=== PATIENT | female | born 1960 | race African-American/Black ===

== ENCOUNTER 2021-08-10 14:05 | Emergency (ER) | payer MEDICARE, MEDICAID, SELFPAY ==
[2021-08-10 14:07] VITALS: BP 133/80; PULSE 94; RESP 16; TEMP 36.3; O2SAT 99
--- NOTE | 2021-08-10 14:26 | PC.NURSE ---
pt states she was seen at [facility] this week. States they did an xray and diagnosed her with cellulitis. States she has been taking her clindamyicin with no change in s/s. Reports increased pain.
--- NOTE | 2021-08-10 14:46 | ED.GENADULT ---
HPI - General Adult General Chief complaint: Skin/Abscess/Foreign Body Stated complaint: swollen foot Time Seen by Provider: 08/10/21 14:38 Source: patient and RN notes reviewed Mode of arrival: ambulatory Limitations: no limitations History of Present Illness HPI narrative: Patient is 61 years old -Iranian female presents with pain and redness and swelling of the left big toe and the surrounding area started 1 week ago. Was seen at [facility] 5 days ago and started on clindamycin and tramadol without any improvement. Patient denies any trauma, fever, chills, nausea, vomiting. Patient had negative x-ray of the left foot at [facility] 5 days ago. No history of gout. Patient reports the pain is constant day and night, cannot tolerate anything on the foot even the bedsheet. Related Data Allergies Allergy/AdvReac Type Severity Reaction Status Date / Time Penicillins Allergy Hives Verified 08/10/21 14:17 aspirin AdvReac Nausea Verified 08/10/21 14:18 Review of Systems Review of Systems: CONSTITUTIONAL: Denies fever, chills, or sweats. EYES: Denies visual changes, redness, or discharge. ENT: Denies rhinorrhea, congestion, sore throat, or otalgia. CARDIOVASCULAR: Denies chest pain, palpitations, or edema. RESPIRATORY: Denies cough or dyspnea. GASTROINTESTINAL: Denies abdominal pain, nausea, vomiting, or diarrhea. GENITOURINARY: Denies dysuria or hematuria. SKIN: Denies rash or itching. MUSCULOSKELETAL: Denies back pain, joint pain, or myalgia. NEUROLOGIC: Denies headache, numbness, or weakness. PSYCHIATRIC: Denies anxiety or depression. Exam Narrative: General appearance: Well-developed, well-nourished Skin: Normal color Head: Normocephalic, nontraumatic Eyes: Clear conjunctiva ENT: Oropharynx normal, ears normal, nose normal Neck: Supple, nontender Chest and respiratory: Airway patent, no respiratory distress, no accessory muscle use Heart: Regular rate/rhythm Abdomen: Soft, nontender, no organomegaly, quiet bowel sounds Vascular: Normal peripheral pulses, normal capillary refill. Musculoskeletal: Left foot showed diffuse swelling, severe tenderness, redness and warmth feeling on the dorsal side and medial side of the toe Neurologic: Alert and oriented ?3, MAINTE[employer] TECH[employer]ICIAN is normal as tested, no gross motor deficit Course Course Emergency Course: Acute gouty arthritis is my concern. Clinical examination favors the gouty arthritis more than anything. There is no infection. Patient need to stop the antibiotic. Vital Signs Vital signs: Vital Signs Temperature 36.3 C L 08/10/21 14:07 Pulse Rate 94 08/10/21 14:07 Respiratory Rate 16 08/10/21 14:07 Blood Pressure 133/80 08/10/21 14:07 Pulse Oximetry 99 08/10/21 14:07 Temperature 36.3 C L 08/10/21 14:07 Pulse Rate 78 08/10/21 15:12 Respiratory Rate 18 08/10/21 15:12 Blood Pressure 133/80 08/10/21 14:07 Pulse Oximetry 98 08/10/21 15:12 Medical Decision Making Differential Diagnosis Differential Diagnosis: Gouty arthritis, tendinitis, tenosynovitis Vital Signs Vital Signs: Vital Signs Temperature 36.3 C L 08/10/21 14:07 Pulse Rate 94 08/10/21 14:07 Respiratory Rate 16 08/10/21 14:07 Blood Pressure 133/80 08/10/21 14:07 Pulse Oximetry 99 08/10/21 14:07 Temperature 36.3 C L 08/10/21 14:07 Pulse Rate 78 08/10/21 15:12 Respiratory Rate 18 08/10/21 15:12 Blood Pressure 133/80 08/10/21 14:07 Pulse Oximetry 98 08/10/21 15:12 Critical Care Time Critical Care Time Critical Care Time: No Discharge Plan Discharge Clinical Impression: Acute gout Patient Disposition: Home, Self-Care Condition: Stable Inst
[2021-08-10] MEDS: INDOMETHACIN 25 MG CAPSULE 50 MG PO (15:06)
[2021-08-10] MEDS: COLCHICINE 0.6 MG TABLET 1.2 MG PO (15:06)
[2021-08-10 15:12] VITALS: PULSE 78; RESP 18; O2SAT 98
== END 2021-08-10 15:13 | disposition home or self-care (01) ==
PROVIDERS: Emergency Provider Emergency Medicine; PCP Internal Medicine Infectious Disease
DX: M10.9 Gout, unspecified (principal)
CPT/HCPCS: 99283; A9270

== ENCOUNTER 2021-09-13 16:34 | Emergency (ER) | payer MEDICARE, OTHER, MEDICAID, SELFPAY ==
--- NOTE | ~2021-09-13 | CT_ITS ---
EXAMINATION: CT abdomen pelvis w con DATE: 09/13/2021 18:15 INDICATION: Upper abdominal pain radiating to the back. Nausea and vomiting. TECHNIQUE: Computed tomography (CT) of the abdomen and pelvis was performed with 75 mL Omnipaque 300 intravenous contrast. Automated exposure control and iterative reconstruction technique were employed . The dose-length product was 846.75 mGy-cm. COMPARISON: None. FINDINGS: The visualized portions of the lung bases demonstrate mild atelectasis. No pleural effusion . The heart size is normal. No pericardial effusion. There is a 10 mm cyst in the liver. There is a g allstone in the gallbladder, which is normal in size. The spleen, pancreas, and adrenal glands are no rmal. There are cysts in the kidneys measuring up to 2.0 cm on the left. There is diverticulosis of t he colon without evidence of diverticulitis. The appendix is normal. There is a small sliding hiatal hernia. There are no pathologically enlarged lymph nodes. There is no free intraperitoneal fluid. An intrathecal catheter is noted. There are bilateral total hip arthroplasties. There are changes of ant erior and posterior fusion procedures at L4-L5. IMPRESSION: 1. Cholelithiasis. No evidence of acute cholecystitis. 2. Small sliding hiatal hernia. Reviewed, dictated and finalized at location A.
[2021-09-13 16:36] VITALS: BP 151/82; PULSE 69; RESP 18; TEMP 36.3; O2SAT 100
--- NOTE | 2021-09-13 16:41 | ECG_ITS ---
Measurements Intervals [place] Rate: 57 P: 63 NV: 202 QRS: -29 QRSD: 100 T: -62 QT: 378 QTc: 370 Interpretive Statements SINUS BRADYCARDIA ANTEROSEPTAL INFARCT, AGE INDETERMINATE ST-T WAVE ABNORMALITY IN ANTEROLAT/INF LEADS- CONSIDER ISCHEMIA BASELINE ARTIFACT- I, III, AVL, AVF ABNORMAL ECG Electronically Signed On 09-13-2021 20:38:29 CDT by Musa Cline D.O.
[2021-09-13 16:57] LABS: Basophils Percent Auto 0.2 % (0.2-1.2); Eosinophils Absolute Auto 0.1 K/mm3 (0-0.3); Eosinophils Percent Auto 1.6 % (0-4.4); Hematocrit 38.6 % (37.0-47.0); Hemoglobin 12.4 g/dL (12.0-15.0); Immature Granulocyte Absolute 0.03 K/mm3 (0.00-0.031); Immature Granulocyte Percent A 0.4 % (0-0.5); Lymphocytes Absolute Auto 1.62 K/mm3 (0.9-3.2); Lymphocytes Percent Auto 19.4 % (18.3-44.2); Mean Corpuscular HGB Conc 32.1 g/dl (32-36); Mean Corpuscular Hemoglobin 29.1 pg (26-34); Mean Corpuscular Volume 90.6 fl (80-100); Mean Platelet Volume 10.4 fl (7.4-10.4); Monocytes Absolute Auto 0.4 K/mm3 (0.1-0.6); Monocytes Percent Auto 4.3 % (2.6-8.5); Neutrophils Absolute Auto 6.2 K/mm3 (1.3-6.7); Neutrophils Percent Auto 74.1 % (45.5-73.1); Platelet Count Result 213 k/mm3 (150-375); Red Blood Count 4.26 M/mm3 (4.2-5.4); White Blood Count 8.3 K/mm3 (4.5-10.0)
[2021-09-13 17:06] LABS: Alanine Aminotransferase 12 U/L (6-35); Albumin Level 4.3 g/dL (3.5-5.1); Alkaline Phosphatase 66 U/L (38-126); Anion Gap 9 mmol/L (8-16); Aspartate Amino Transferase 20 U/L (14-36); Bilirubin,Total 0.3 mg/dL (0.2-1.3); Blood Urea Nitrogen 11 mg/dL (7-17); Carbon Dioxide 22 mmol/L (22-30); Chloride 109 mmol/L (98-107); Estimated CRCL calculation 73 ml/min; Estimated Glomerular Filt Rate > 60; Glucose 113 mg/dL (65-110); Lipase 37 U/L (23-300); Potassium 3.7 mmol/L (3.4-5.0); Sodium 140 mmol/L (137-145)
[2021-09-13] MEDS: ONDANSETRON INJ 4 MG/2 ML VIAL IV PUSH (17:59)
[2021-09-13] MEDS: HYDROmorphone HCL INJ (*CRX) 1 MG/ML SYR IV PUSH (17:59)
--- NOTE | 2021-09-13 18:03 | PC.NURSE ---
Thrashing and moaning on cart.
[2021-09-13] MEDS: SODIUM CHLORIDE 0.9% IV 1,000 ML 999 ML IV CONT (18:21)
[2021-09-13] MEDS: DICYCLOMINE HCL INJ 20 MG/2 ML VIAL IM (18:55)
[2021-09-13 18:56] LABS: Lactic Acid Reflex 1.3 mmol/L (0.7-2.0)
[2021-09-13 19:14] LABS: Appearance Urine Clear (Clear); Bilirubin Urine Negative (Negative); Color Urine Yellow (Yellow); Glucose Urine UA Negative (Negative); Ketones Urine Negative (Negative); Leukocyte Esterase Ur Negative LEU/UL (Negative); Nitrate Urine Negative (Negative); Protein Urine Negative (Negative); Specific Grav Ur 1.015 (1.001-1.035); Urobilinogen Urine 0.2 mg/dL (<2.0); pH Urine 8.5 (5.0-9.0)
[2021-09-13 19:23] LABS: Bacteria Urine Trace /hpf; Squamous Epithelial Cell Urine Rare /hpf (Few); WBC Urine 0-3 /hpf
[2021-09-13 19:24] LABS: Troponin I < 0.012 ng/mL (0.000-0.034)
[2021-09-13 19:43] LABS: Add Urine Microscopic? YES; Blood Urine Trace-Intact (Negative)
[2021-09-13 19:49] VITALS: BP 147/77; PULSE 74; RESP 24; O2SAT 100
[2021-09-13] MEDS: KETOROLAC 15 MG/ML VIAL (*BKC) IV PUSH (19:54)
--- NOTE | 2021-09-13 19:55 | ED.ABDPAIN ---
HPI - Abdominal Pain General Chief Complaint: Abdominal Pain Stated Complaint: abd pain Time Seen by Provider: 09/13/21 17:38 Source: patient Mode of arrival: EMS Limitations: no limitations History of Present Illness HPI narrative: This is a 61 year old female who presents for evaluation of epigastric abdominal pain. She started having pain this morning that has been constant, but it intermittently worsens . She is unable to describe her pain. She states states it hurts. She reports nausea and vomiting. She had normal bowel movement this morning. She denies having similar pain in the past. She denies fever, chills, sob, or chest pain. She has not taken anything for her pain. MD elicited complaint: abdominal pain Pain Consistency: intermittent Related Data Home Medications Medication Instructions Recorded Confirmed bupropion HCl 300 mg PO DAILY 09/13/21 Allergies Allergy/AdvReac Type Severity Reaction Status Date / Time Penicillins Allergy Hives Verified 09/13/21 17:44 aspirin AdvReac Nausea Verified 09/13/21 17:44 codeine AdvReac Nausea Verified 09/13/21 17:44 Review of Systems Review of Systems: All systems reviewed & are unremarkable except as noted in HPI and below PMFSH Past Medical History Medical History (Updated 09/13/21 @ 22:05 by Tess Velazquez MD) Chronic back pain Diverticulitis Surgical History Surgical History (Updated 09/13/21 @ 19:57 by Tess Velazquez MD) History of colon resection Social History Social History (Updated 09/13/21 @ 19:58 by Tess Velazquez MD) Smoking status: Never smoker Exam Const: General: alert Orientation/consciousness: patient oriented x3 Other: patient appear to be in pain, Eyes: EOM: EOMs intact bilaterally Resp: Effort & Inspection: normal respiratory effort and no retractions Auscultation: clear to auscultation bilaterally Cardio: Rate: regular rate Rhythm: regular rhythm Heart sounds: no murmurs GI: GI Palp: Yes Soft to palpation, Yes Tenderness to palpation present (GI) (epigastric), No Guarding due to palpation present (GI) and No Rigid due to palpation Auscultation: normal bowel sounds Skin: General skin exam: normal color Neuro: General: patient oriented x3, moves all extremities and CN's II-XI intact bilaterally Psych: Mental Status: mental status grossly normal Affect: normal affect Course Reevaluation(s) Reevaluation #1: I discussed with patient labs and CT are unremarkable other than gallstone. there is no sign of cholecystitis. No lactic acidosis. Nursing staff states patient will lay bed appearing well and start moaning once she is in room. Patient's exam has been benign with out vomiting .. She will be discharged. Date: 09/13/21 Time: 22:01 Vital Signs Vital signs: Vital Signs Temperature 97.3 F L 09/13/21 16:36 Pulse Rate 69 09/13/21 16:36 Respiratory Rate 18 09/13/21 16:36 Blood Pressure 151/82 H 09/13/21 16:36 Pulse Oximetry 100 09/13/21 16:36 Temperature 97.3 F L 09/13/21 16:36 Pulse Rate 76 09/13/21 21:11 Respiratory Rate 22 H 09/13/21 21:11 Blood Pressure 152/92 H 09/13/21 21:11 Pulse Oximetry 99 09/13/21 21:11 MDM - Abdominal Pain Lab Data Attestation: I reviewed the patient's lab results. Result diagrams: 09/13/21 16:42 09/13/21 16:42 Labs: Lab Results 09/13/21 09/13/21 09/13/21 Range/Units 16:42 16:42 16:42 WBC 8.3 (4.5-10.0) K/mm3 RBC 4.26 (4.2-5.4) M/mm3 Hgb 12.4 (12.0-15.0) g/dL Hct 38.6 (37.0-47.0) % MCV 90.6 (80-100) fl MCH 29.1 (26-34) pg MCHC 32.1 (32-36) g/dl RDW 15.0 H (11.5-14.5) % Plt Count 213 (150-375) k/mm3 MPV 10.4 (7.4-10.4) fl Immature Gran % (Auto) 0.4 (0-0.5) % Neut % (Auto) 74.1 H (45.5-73.1) % Lymph % (Auto) 19.4 (18.3-44.2) % Randall % (Auto) 4.3 (2.6-8.5) % Eos % (Auto) 1.6 (0-4.4) % Baso % (Auto) 0.2 (0.
[2021-09-13] MEDS: BELLADONNA ALK/PHENOB ELIX 10 ML, MAG HYDROX/ALUMINUM HYD/SIMETH 30 ML, LIDOCAINE HCL 2... PO (19:57)
[2021-09-13] MEDS: HALOPERIDOL LACTATE 5 MG/ML VIAL IM (21:07)
[2021-09-13 21:11] VITALS: BP 152/92; PULSE 76; RESP 22; O2SAT 99
--- NOTE | 2021-09-13 21:54 | PC.NURSE ---
2154-UPON ENTERING ROOM, PATIENT WAS LYING ON LEFT SIDE UTILIZING CELL PHONE. ONCE PATIENT BECAME AWARE OF MY PRESENCE, SHE BEGAN MOANING, SAT UP, AND BEGAN CLUTCHING UPPER ABDOMEN. PATIENT SHAKES HEAD NO WHEN ASKED IN PAIN IMPROVED. UPDATE TO ERP.
[2021-09-13 22:15] VITALS: BP 148/90; PULSE 64; RESP 20; O2SAT 100
== END 2021-09-13 22:20 | disposition home or self-care (01) ==
PROVIDERS: Emergency Medicine; Emergency Provider General Practice; PCP Internal Medicine Infectious Disease
DX: K80.20 Calculus of gallbladder without cholecystitis without obstruction (principal); Z90.49 Acquired absence of other specified parts of digestive tract; K44.9 Diaphragmatic hernia without obstruction or gangrene
CPT/HCPCS: 36415; 74177; 80053; 81001; 83605; 83690; 84484; 85025; 93005; 96365; 96372; 96375; 99284; A9270; J0131; J0500; J1170; J1630; J1885; J2405; J7030; Q9967